=== PATIENT | male | born 1980 | race African-American/Black ===

== ENCOUNTER 2018-10-12 20:38 | Emergency (ER) | payer OTHER ==
[~2018-10-12] VITALS: Ht 177.8 cm; Wt 90.7 kg
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
[2018-10-12 20:50] VITALS: BP 137/85
[2018-10-12] MEDS ORDERED: IBUPROFEN600 MG ORAL (21:14)
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
[2018-10-12 21:25] VITALS: BP 126/84
--- NOTE | 2018-10-12 21:27 | NUR ---
ER DISCHARGE NOTE: Patient is cleared to be discharged per ERMD, pt is aox4, on room air, with stable vital signs. pt was given dc and prescription instructions, pt was able to verbalize understanding, pt id band removed. pt is able to ambulate with steady gait. pt took all belongings.
--- NOTE | 2018-10-13 12:35 | Diagnostic Imaging Report ---
Indication: Right shoulder pain COMPARISON: None Findings: 3 views of the right shoulder were obtained. No acute fractures, malalignment, erosions or periostitis are identified. Soft tissues are unremarkable. Impression: Negative for acute injury
== END 2018-10-12 21:28 | disposition home or self-care (01) ==
LOC: EMR 21:27
DX: S46.911A Strain of unspecified muscle, fascia and tendon at shoulder and upper arm level, right arm, initial encounter (principal); V43.52XA Car driver injured in collision with other type car in traffic accident, initial encounter; Y92.410 Unspecified street and highway as the place of occurrence of the external cause
CPT/HCPCS: 99283